=== PATIENT | male | born 1990 | race American Indian/Alaskan Native ===

== ENCOUNTER 2018-02-22 16:29 | Emergency (ER) | payer BC ==
--- NOTE | 2018-02-22 17:01 | EDM.PDOC ---
ED HPI GENERAL MEDICAL PROBLEM - General Chief Complaint: ENT Problem Stated Complaint: SORE THROAT AND CONGESTION Time Seen by Provider: 02/22/18 16:52 Source of Information: Reports: Patient History Limitations: Reports: No Limitations - History of Present Illness INITIAL COMMENTS - FREE TEXT/NARRATIVE: HISTORY AND PHYSICAL: History of present illness: Patient is a 27-year-old male who presents to the emergency room with complaints of sore throat, hoarse voice and subjective fevers. He spit states over the past 24 hours he has felt like he has had a fever and had some intermittent chills. Developed a sore throat and felt like his voice was hoarse. December 2017: Patient did have an ultrasound of the neck which showed a well circumscribed hypoechoic mass 7 x 5 mm. He states that this was biopsied and is non-Hodgkin's lymphoma. Currently is receiving radiation therapy for this , last treatment was one week ago. He states he does follow closely with Dr. Medellin and his oncologist. Concerned he may have strep throat. Review of systems: As per history of present illness and below otherwise all systems reviewed and negative. Past medical history: As per history of present illness and as reviewed below otherwise noncontributory. Surgical history: As per history of present illness and as reviewed below otherwise noncontributory. Social history: See social history for further information Family history: As per history of present illness and as reviewed below otherwise noncontributory. Physical exam: General: Well-developed and well-nourished 27-year-old male. Alert and oriented. Nontoxic appearing and in no acute distress. HEENT: Atraumatic, normocephalic, pupils equal and reactive bilaterally, negative for conjunctival pallor or scleral icterus, mucous membranes moist, posterior oropharynx is mildly erythematous without exudate, no pillar shifting or fullness, neck supple, nontender, small incision site noted below right mandible, trachea midline. No drooling or trismus noted. No meningeal signs. No hot potato voice. Lungs: Clear to auscultation, breath sounds equal bilaterally, chest nontender. Dry nonproductive cough noted. Heart: S1S2, regular rate and rhythm without overt murmur Abdomen: Soft, nondistended, nontender. Negative for masses or hepatosplenomegaly. Negative for costovertebral tenderness. Pelvis: Stable nontender. Genitourinary: Deferred. Rectal: Deferred. Skin: Healing biopsy site noted to the right upper neck below the mandible (no sign of complications). Otherwise skin is intact, warm, dry. No lesions or rashes noted. Extremities: Atraumatic, negative for cords or calf pain. Neurovascular unremarkable. Neuro: Awake, alert, oriented. Cranial nerves II through XII unremarkable. Cerebellum unremarkable. Motor and sensory unremarkable throughout. Exam nonfocal. Notes: Discussed doing a strep and chest x-ray. Both of these are within normal limits. At this time we did discuss if we should do lab work, he declines. He states he does follow closely with his primary care provider. We'll treat with Z -Jono and Medrol Dosepak. He states he will follow-up on Saturday. Reviewed signs and symptoms that would prompt him to return to the emergency room. He voices understanding and is agreeable to plan of care. Denies any further questions or concerns at this time. Diagnostics: Strep, chest x-ray Therapeutics: None Prescription: Zpack Medrol Dospak Phenergan w/ Codeine Impression: Atypical Pneumonia Pharyngitis Plan: 1. Please take the medication as prescribed. 2. Tylenol and/or Ibuprofen for pain and fever management. Take the Phenergan with Codeine for moderate to severe pain. Can cause drowsiness. 3. Follow-up with your primary caregiver and/or Dr. Medellin on Saturday. 4. Return to the ED as needed and as discussed. Definitive disposition and diagnosis as appropriate pending reevaluation and review of above. Throat Pain Score (Numeric/FACES): 5 - Related Data Allergies Allergy/AdvReac Type Severity Reaction Status Date / Time amoxicillin Allergy Hives Verified 02/22/18 16:50 Penicillins Allergy Hives Verified 02/22/18 16:50 Home Meds: Home Meds ARIPiprazole [Abilify] 5 mg PO QAM 01/21/18 [History] Sertraline HCl 100 mg PO QAM 01/21/18 [History] Past Medical History HEENT History: Reports: Retinal Detachment, Other (See Below) Other HEENT History: wears glasses/contacts, hx of retinal tear - no treatment needed- vision preserved Musculoskeletal History: Reports: Fracture Other Musculoskeletal History: hx of fx right wrist and right jaw Neurological History: Reports: Concussion Psychiatric History: Reports: Depression Oncologic (Cancer) History: Reports: Non-Hodgkin's Lymphoma - Infectious Disease History Infectious Disease History: Reports: Chicken Pox Social & Family History - Family History Family Medical History: Noncontributory - Tobacco Use Smoking Status *Q: Never Smoker - Recreational Drug Use Recreational Drug Use: No ED ROS ENT - Review of Systems Review Of Systems: ROS reveals no pertinent complaints other than HPI. ED EXAM, ENT - Physical Exam Exam: See Below (See dictation) Course - Vital Signs Last Recorded V/S: Last Vital Signs Temp 98.7 F 02/22/18 16:47 Pulse 74 02/22/18 18:55 Resp 18 02/22/18 16:47 BP 140/60 02/22/18 18:55 Pulse Ox 97 02/22/18 18:55 - Orders/Labs/Meds Orders: Active Orders 24 hr Category Date Time Status Chest 2V [CR] Stat Exams 02/22/18 17:01 Taken CULTURE STREP A CONFIRMATION [RM] Stat Lab 02/22/18 17:00 Results STREP SCRN A RAPID W CULT CONF [RM] Stat Lab 02/22/18 17:00 Results Departure - Departure Time of Disposition: 18:43 Disposition: Home, Self-Care 01 Clinical Impression: Atypical pneumonia - Discharge Information Instructions: Community-Acquired Pneumonia, Adult, [id number] Referrals: PCP,None [Primary Care Provider] - Forms: ED Department Discharge Additional Instructions: The following information is given to patients seen in the emergency department who are being discharged to home. This information is to outline your options for follow-up care. We provide all patients seen in our emergency department with a follow-up referral. The need for follow-up, as well as the timing and circumstances, are variable depending upon the specifics of your emergency department visit. If you don't have a primary care physician on staff, we will provide you with a referral. We always advise you to contact your personal physician following an emergency department visit to inform them of the circumstance of the visit and for follow-up with them and/or the need for any referrals to a consulting specialist. The emergency department will also refer you to a specialist when appropriate. This referral assures that you have the opportunity for follow-up care with a specialist. All of these measure are taken in an effort to provide you with optimal care, which includes your follow-up. Under all circumstances we always encourage you to contact your private physician who remains a resource for coordinating your care. When calling for follow-up care, please make the office aware that this follow-up is from your recent emergency room visit. If for any reason you are refused follow-up, please contact the [facility] Emergency Department at and asked to speak to the emergency department charge nurse. [facility] [address] [place] [id number] [facility] [address] [place] [id number] [facility] - ENT [address], [place] [address] 1. Please take the medication as prescribed. 2. Tylenol and/or Ibuprofen for pain and fever management. Take the Phenergan with Codeine for moderate to severe pain. Can cause drowsiness. 3. Follow-up with your primary caregiver and/or Dr. Medellin on Saturday. 4. Return to the ED as needed and as discussed. - My Orders Last 24 Hours: My Active Orders 02/22/18 17:00 CULTURE STREP A CONFIRMATION [RM] Stat STREP SCRN A RAPID W CULT CONF [RM] Stat 02/22/18 17:01 Chest 2V [CR] Stat - Assessment/Plan Last 24 Hours: My Active Orders 02/22/18 17:00 CULTURE STREP A CONFIRMATION [RM] Stat STREP SCRN A RAPID W CULT CONF [RM] Stat 02/22/18 17:01 Chest 2V [CR] Stat
--- NOTE | 2018-02-24 17:54 | CR ---
EXAM DATE: 02/22/18 PATIENT'S AGE: 27 Patient: SHIRA MORRISON Facility: [place], [place] Site . Site : 1990 Study: XRay Chest [id number]/12/2019 6:40:09 PM Ordering Physician: Doctor Parada Final Report: INDICATION: Pain. TECHNIQUE: PA and lateral views of the chest. COMPARISON: None. FINDINGS: Normal cardiac, mediastinal and hilar contours. Normal pulmonary vasculature. Lungs are clear. No pleural fluid or pneumothorax. IMPRESSION: No signs of acute cardiopulmonary disease. Dictated by Javier Bhatia MD @ 02/22/2018 6:56:53 PM Dictated by: Javier Bhatia MD @ 02/22/2018 18:57:00 (Electronic Signature) Report Signed by Proxy. [place]
== END 2018-02-22 18:55 | disposition home or self-care (01) ==
LOC: MW.ED 16:29
DX: J18.9 Pneumonia, unspecified organism (principal); J20.9 Acute bronchitis, unspecified; Z88.0 Allergy status to penicillin; Z88.1 Allergy status to other antibiotic agents
CPT/HCPCS: 71046; 71046-26; 87081; 87880-QW; 99283

== ENCOUNTER 2018-06-03 14:55 | Emergency (ER) | payer BC ==
[2018-06-03] MEDS ORDERED: Sodium Chloride 0.9% 1,000 ML IV ONE (14:58)
--- NOTE | 2018-06-03 15:06 | EDM.PDOC ---
ED HPI GENERAL MEDICAL PROBLEM - General Chief Complaint: General Stated Complaint: FEELS FUNNY Time Seen by Provider: 06/03/18 14:57 Source of Information: Reports: Patient History Limitations: Reports: No Limitations - History of Present Illness INITIAL COMMENTS - FREE TEXT/NARRATIVE: HISTORY AND PHYSICAL: History of present illness: Patient is a 27-year-old male who presents to the emergency room with complaints of right-sided visual changes, feeling unsteady and dizziness since this afternoon. He states his symptoms started while he was working out. He noticed symptoms when he leaned back to the incline patch and started having dizziness and felt like he was off balance. He proceeded to go home and felt "shaky" and the other symptoms continued. Patient does have a history of non- Hodgkin's lymphoma, completed radiation therapy approximately 2 months ago. He sees an oncologist in [place]. Patient reports that he was talking with a coworker who states he had a "brain aneurysm" that was found after a similar instance of symptoms while he was working out. He states "I'm not sure if I'm overreacting and just getting in my head". He denies any alcohol, drug, stimulant or steroid use. Patient reports that this morning he felt well and had eaten is regular breakfast and lunch. Patient denies any fever, chills, headache, change in vision, syncope or near syncope. Denies any chest pain, back pain, shortness of breath or cough. Denies any abdominal pain, nausea, vomiting, diarrhea, constipation or dysuria. Has not noted any blood in urine or stool. Patient has been eating and drinking appropriately. Review of systems: As per history of present illness and below otherwise all systems reviewed and negative. Past medical history: As per history of present illness and as reviewed below otherwise noncontributory. Surgical history: As per history of present illness and as reviewed below otherwise noncontributory. Social history: See social history for further information Family history: As per history of present illness and as reviewed below otherwise noncontributory. Physical exam: General: Well-developed and well-nourished 27-year-old male. Alert and oriented. Nontoxic appearing and in no acute distress. HEENT: Atraumatic, normocephalic, pupils equal and reactive bilaterally, negative for conjunctival pallor or scleral icterus, mucous membranes moist, TMs normal bilaterally, throat clear, neck supple, nontender, trachea midline. No drooling or trismus noted. No nystagmus noted. No meningeal signs. No hot potato voice noted. Lungs: Clear to auscultation, breath sounds equal bilaterally, chest nontender. Heart: S1S2, regular rate and rhythm without overt murmur Abdomen: Soft, nondistended, nontender. Negative for masses or hepatosplenomegaly. Negative for costovertebral tenderness. Pelvis: Stable nontender. Genitourinary: Deferred. Rectal: Deferred. Skin: Intact, warm, dry. No lesions or rashes noted. Extremities: Atraumatic, moves all extremities per self without difficulty or deficits, negative for cords or calf pain. Neurovascular unremarkable. Neuro: Awake, alert, oriented. Cranial nerves II through XII unremarkable. Cerebellum unremarkable. Motor and sensory unremarkable throughout. Exam nonfocal. Notes: Lab work is unremarkable. BUN/Creat were slightly elevated; no comparision available. That was shared with the patient and encouraged him to have labs redrawn after he feels better. Head CT and chest x-ray are within normal limits. Patient's EKG shows a normal sinus rhythm with rate of 76 abdominal acute findings. All findings were shared with the patient. He states he does feel improved after receiving the IV fluids. Supportive care measures were reviewed and discussed. Voices understanding and is agreeable to plan of care. Denies any further questions or concerns at this time. Diagnostics: CBC, CMP, EKG, one view chest, head CT, orthostatic vital signs Therapeutics: IV fluid Prescription: None Impression: Dizziness Plan: 1. Today's lab work, x-rays and imaging are reassuring. Please take the remainder of the day to rest. Avoid any stimulants such as caffeine, alcohol or supplements. Increase your oral fluids. 2. Follow-up with your primary care provider as we discussed. 3. Return to the ED as needed and as discussed. Definitive disposition and diagnosis as appropriate pending reevaluation and review of above. right head Pain Score (Numeric/FACES): 6 - Related Data Allergies Allergy/AdvReac Type Severity Reaction Status Date / Time amoxicillin Allergy Hives Verified 06/03/18 14:59 Penicillins Allergy Hives Verified 06/03/18 14:59 Home Meds: Home Meds . [No Known Home Meds] 06/03/18 [History] Past Medical History HEENT History: Reports: Retinal Detachment, Other (See Below) Other HEENT History: wears glasses/contacts, hx of retinal tear - no treatment needed- vision preserved Musculoskeletal History: Reports: Fracture Other Musculoskeletal History: hx of fx right wrist and right jaw Neurological History: Reports: Concussion Psychiatric History: Reports: Depression Oncologic (Cancer) History: Reports: Non-Hodgkin's Lymphoma - Infectious Disease History Infectious Disease History: Reports: Chicken Pox Social & Family History - Family History Family Medical History: Noncontributory ED ROS GENERAL - Review of Systems Review Of Systems: ROS reveals no pertinent complaints other than HPI. ED EXAM, GENERAL - Physical Exam Exam: See Below (See dictation) Course - Vital Signs Last Recorded V/S: Last Vital Signs Temp 97.7 F 06/03/18 14:57 Pulse 88 06/03/18 14:57 Resp 18 06/03/18 14:57 BP 146/72 H 06/03/18 14:57 Pulse Ox 96 06/03/18 14:57 Orthostatic Blood Pressure [ 121/56 Standing] Orthostatic Blood Pressure [ 119/57 Sitting] Orthostatic Blood Pressure [ 115/47 Supine] - Orders/Labs/Meds Orders: Active Orders 24 hr Category Date Time Status EKG Documentation Completion [RC] STAT Care 06/03/18 14:58 Active Glucose [Blood Glucose Check, Bedside] [RC] ONETIME Care 06/03/18 15:06 Active Orthostatic Vital Signs [RC] ASDIRECTED Care 06/03/18 14:58 Active Labs: Laboratory Tests 06/03/18 06/03/18 Range/Units 15:05 15:05 WBC 7.38 (4.0-11.0) K/uL RBC 4.98 (4.50-5.90) M/uL Hgb 15.8 (13.0-17.0) g/dL Hct 45.5 (38.0-50.0) % MCV 91.4 (80.0-98.0) fL MCH 31.7 (27.0-32.0) pg MCHC 34.7 (31.0-37.0) g/dL RDW Std Deviation 43.4 (28.0-62.0) fl RDW Coeff of Laly 13 (11.0-15.0) % Plt Count 277 (150-400) K/uL MPV 10.10 (7.40-12.00) fL Neut % (Auto) 56.2 (48.0-80.0) % Lymph % (Auto) 34.8 (16.0-40.0) % Stone % (Auto) 6.6 (0.0-15.0) % Eos % (Auto) 1.9 (0.0-7.0) % Baso % (Auto) 0.5 (0.0-1.5) % Neut # (Auto) 4.1 (1.4-5.7) K/uL Lymph # (Auto) 2.6 H (0.6-2.4) K/uL Stone # (Auto) 0.5 (0.0-0.8) K/uL Eos # (Auto) 0.1 (0.0-0.7) K/uL Baso # (Auto) 0.0 (0.0-0.1) K/uL Nucleated RBC % 0.0 /100WBC Nucleated RBCs # 0 K/uL Sodium 138 (136-148) mmol/L Potassium 4.1 (3.5-5.1) mmol/L Chloride 102 (98-107) mmol/L Carbon Dioxide 25.5 (21.0-32.0) mmol/L BUN 24 H (7.0-18.0) mg/dL Creatinine 1.5 H (0.8-1.3) mg/dL Est Cr Clr Drug Dosing 77.73 mL/min Estimated GFR (MDRD) 57.0 ml/min Glucose 106 (74-106) mg/dL Calcium 9.7 (8.5-10.1) mg/dL Total Bilirubin 0.6 (0.2-1.0) mg/dL AST 16 (15-37) IU/L ALT 37 (14-63) IU/L Alkaline Phosphatase 56 (46-116) U/L Total Protein 7.9 (6.4-8.2) g/dL Albumin 4.6 (3.4-5.0) g/dL Globulin 3.3 (2.6-4.0) g/dL Albumin/Globulin Ratio 1.4 (0.9-1.6) Meds: Medications Discontinued Medications Generic Name Dose Route Start Last Admin Trade Name Freq PRN Reason Stop Dose Admin Sodium Chloride 1,000 mls @ 999 mls/hr 06/03/18 14:58 06/03/18 15:09 Normal Saline IV 06/03/18 15:58 999 mls/hr STAT ONE Administration Departure - Departure Time of Disposition: 16:36 Disposition: Home, Self-Care 01 Clinical Impression: Dizziness - Discharge Information Instructions: Dizziness, [id number] Referrals: PCP,None [Primary Care Provider] - Forms: ED Department Discharge Additional Instructions: The following information is given to patients seen in the emergency department who are being discharged to home. This information is to outline your options for follow-up care. We provide all patients seen in our emergency department with a follow-up referral. The need for follow-up, as well as the timing and circumstances, are variable depending upon the specifics of your emergency department visit. If you don't have a primary care physician on staff, we will provide you with a referral. We always advise you to contact your personal physician following an emergency department visit to inform them of the circumstance of the visit and for follow-up with them and/or the need for any referrals to a consulting specialist. The emergency department will also refer you to a specialist when appropriate. This referral assures that you have the opportunity for follow-up care with a specialist. All of these measure are taken in an effort to provide you with optimal care, which includes your follow-up. Under all circumstances we always encourage you to contact your private physician who remains a resource for coordinating your care. When calling for follow-up care, please make the office aware that this follow-up is from your recent emergency room visit. If for any reason you are refused follow-up, please contact the [facility] Emergency Department at and asked to speak to the emergency department charge nurse. [facility] [address] [place] [address] [facility] [address] [place] [id number] 1. Today's lab work, x-rays and imaging are reassuring. Please take the remainder of the day to rest. Avoid any stimulants such as caffeine, alcohol or supplements. Increase your oral fluids. 2. Follow-up with your primary care provider as we discussed. 3. Return to the ED as needed and as discussed. - My Orders Last 24 Hours: My Active Orders 06/03/18 14:58 EKG Documentation Completion [RC] STAT Orthostatic Vital Signs [RC] ASDIRECTED 06/03/18 15:06 Glucose [Blood Glucose Check, Bedside] [RC] ONETIME - Assessment/Plan Last 24 Hours: My Active Orders 06/03/18 14:58 EKG Documentation Completion [RC] STAT Orthostatic Vital Signs [RC] ASDIRECTED 06/03/18 15:06 Glucose [Blood Glucose Check, Bedside] [RC] ONETIME
--- NOTE | 2018-06-03 15:56 | CR ---
EXAMINATION: Portable chest radiograph. HISTORY: Shortness of breath. Comparison: 02/22/2018 FINDINGS: The trachea is midline. The cardiomediastinal silhouette is within normal limits. No pulmonary infiltrates, effusions or pneumothorax. Osseous structures appear unremarkable. IMPRESSION: No acute cardiopulmonary process.
--- NOTE | 2018-06-03 16:08 | CT ---
EXAMINATION: Non contrast CT head. Coronal and sagittal reformats. HISTORY: Dizziness FINDINGS: No evidence of intra or extra axial hemorrhage, mass, midline shift, hydrocephalus or edema. No hypoattenuation changes in the major vascular territories to suggest acute infarct. No abnormal intracranial calcifications are detected. No evidence of substantial vascular calcifications. Cavum septum pellucidum Paranasal sinuses and mastoid air cells are well aerated without substantial findings. Pituitary fossa appears unremarkable. Orbits and globes are symmetric. Calvarium is intact. No evidence of skull fracture. IMPRESSION: No acute intracranial findings.
== END 2018-06-03 16:51 | disposition home or self-care (01) ==
LOC: MW.ED 14:55
DX: R42 Dizziness and giddiness (principal); Z88.1 Allergy status to other antibiotic agents
CPT/HCPCS: 36415; 70450; 71045; 80053; 85025; 93005; 96360; 99284; J7040

== ENCOUNTER 2020-01-09 22:34 | Emergency (ER) | payer BC, OTHER ==
[2020-01-09] MEDS ORDERED: Sodium Chloride 0.9% 2.5 ML Syringe FLUSH PRN (22:37)
[2020-01-09] MEDS ORDERED: Sodium Chloride 0.9% 10 ML Syringe FLUSH PRN (22:37)
--- NOTE | 2020-01-09 22:43 | EDM.PDOC ---
ED HPI GENERAL MEDICAL PROBLEM - General Stated Complaint: EMS ARRIVAL Time Seen by Provider: 01/09/20 22:38 - History of Present Illness INITIAL COMMENTS - FREE TEXT/NARRATIVE: History of present illness: [] Patient was out with friends. He enjoys unusually good health. He was drinking with his buddies had an after he went to the bathroom he felt a little chest pain briefly then he passed out. The buddies did CPR and paramedics say they do not think they checked for a pulse. They were not particularly medically trained people. The patient passed out once in the ambulance on the way here and he was breathing and had a pulse. Phillip at the [facility] said that for a few seconds before they started CPR he was not breathing. the patient smokes but he is not diabetic not treated for hypertension. Review of systems: As per history of present illness and below otherwise all systems reviewed and negative. Past medical history: As per history of present illness and as reviewed below otherwise noncontributory. Surgical history: As per history of present illness and as reviewed below otherwise noncontributory. Social history: No reported history of drug or alcohol abuse. Family history: As per history of present illness and as reviewed below otherwise noncontributory. Physical exam: Constitutional - well developed, well-nourished muscular white male and in no acute distress HEENT - normocephalic, no evidence of trauma - external nose and mouth normal - no mass in neck and no JVD - mucosae moist EYES - full EOM, PERRL, no icterus - no evidence of inflammation, injection, or drainage Respiratory -erythema minimal tenderness in the anterior central chest area. No respiratory distress, equal bilateral expansion, lungs clear to auscultation and no abnormal lung sounds Cardiovascular - Regular Rhythm with S1 and S2 appreciated and no murmur, gallop or rub. GI - abdomen soft without distension or organomegaly - normal bowel sounds - no guard or rebound Musculoskeletal tenderness without crepitation in the anterior chest. No gross deformity of long bones or joints - no tenderness, swelling or edema Neurologic - Alert and oriented times four - CN II-XII grossly intact - motor sensory and coordination symmetrically normal Psychiatric - appropriate mood and affect with normal thought content Hematologic - No petechiae or purpura - mucosa appropriate color and sclera not pale - normal nail bed color and refill Integument -mild erythema in the anterior central chest. No rash or evidence of trauma - normal turgor Diagnostics: [] Therapeutics: [] Impression: [] Plan: [] Definitive disposition and diagnosis as appropriate pending reevaluation and review of above. sternal Pain Score (Numeric/FACES): 5 - Related Data Allergies Allergy/AdvReac Type Severity Reaction Status Date / Time amoxicillin Allergy Hives Verified 01/09/20 22:50 Penicillins Allergy Hives Verified 01/03/20 09:35 Home Meds: Home Meds . [No Known Home Meds] 06/03/18 [History] Past Medical History HEENT History: Reports: Retinal Detachment, Other (See Below) Other HEENT History: wears glasses/contacts, hx of retinal tear - no treatment needed- vision preserved Cardiovascular History: Reports: None Respiratory History: Reports: None Gastrointestinal History: Reports: None Genitourinary History: Reports: None Musculoskeletal History: Reports: Fracture Other Musculoskeletal History: hx of fx right wrist and right jaw Neurological History: Reports: Concussion Psychiatric History: Reports: Depression Endocrine/Metabolic History: Reports: None Hematologic History: Reports: None Immunologic History: Reports: None Oncologic (Cancer) History: Reports: Non-Hodgkin's Lymphoma Dermatologic History: Reports: None - Infectious Disease History Infectious Disease History: Reports: Chicken Pox - Past Surgical History Head Surgeries/Procedures: Reports: None HEENT Surgical History: Reports: None Cardiovascular Surgical History: Reports: None Respiratory Surgical History: Reports: None GI Surgical History: Reports: None Male Surgical History: Reports: None Endocrine Surgical History: Reports: None Neurological Surgical History: Reports: None Musculoskeletal Surgical History: Reports: None Oncologic Surgical History: Reports: None Dermatological Surgical History: Reports: None Social & Family History - Family History Family Medical History: No Pertinent Family History - Caffeine Use Caffeine Use: Reports: Coffee ED ROS GENERAL - Review of Systems Review Of Systems: Comprehensive ROS is negative, except as noted in HPI. ED EXAM, GENERAL - Physical Exam Exam: See Below Free Text/Narrative:: My physical exam is in the HPI #1 Interpretation EKG Interpretation Comments: . EKG done at 10:39 PM sinus rhythm with a heart rate of 80. WI interval 133. QT duration 416. Quimby 62. Normal QRS. Normal ST and T. Compared to 06/03/2018 no change impression normal Course - Vital Signs Text/Narrative:: Understood that I thought it would be murphy to be admitted to for monitoring and troponin in the morning. He agreed that if he has any chest pain he will come back. He also agreed to follow-up with Dr. Patel and have a stress test. The patient's only family member that ever had a heart attack was his grandfather gus connolly is recent and he was in his later years. The the patient not being but a very occasional smoker and drinker having a brief chest pain and probable basal vagal episode appears low risk to me and I have decided to allow him to go home. Last Recorded V/S: Last Vital Signs Temp 36.1 C 01/09/20 22:44 Pulse 69 01/09/20 22:44 Resp 20 01/09/20 22:44 BP 135/79 01/09/20 22:44 Pulse Ox 98 01/09/20 22:44 - Orders/Labs/Meds Orders: Active Orders 24 hr Category Date Time Status Cardiac Monitoring [RC] . DIRECTED Care 01/09/20 22:37 Active EKG Documentation Completion [RC] AM Care 01/09/20 22:37 Active Chest 1V Frontal [CR] Stat Exams 01/09/20 23:10 Taken Sodium Chloride 0.9% [Saline Flush] Med 01/09/20 22:37 Active 10 ml FLUSH ASDIRECTED PRN Sodium Chloride 0.9% [Saline Flush] Med 01/09/20 22:37 Active 2.5 ml FLUSH ASDIRECTED PRN Saline Lock Insert [OM.PC] Stat Oth 01/09/20 22:37 Ordered Medication Orders Sodium Chloride (Saline Flush) 10 ml FLUSH ASDIRECTED PRN PRN Reason: Keep Vein Open Last Admin: 01/09/20 22:50 Dose: 10 ml Documented by: CLAUDIA Sodium Chloride (Saline Flush) 2.5 ml FLUSH ASDIRECTED PRN PRN Reason: Keep Vein Open Last Admin: 01/09/20 22:50 Dose: 2.5 ml Documented by: CLAUDIA Labs: Laboratory Tests 01/09/20 01/09/20 Range/Units 22:35 22:35 WBC 10.28 (4.0-11.0) K/uL RBC 5.05 (4.50-5.90) M/uL Hgb 16.1 (13.0-17.0) g/dL Hct 45.2 (38.0-50.0) % MCV 89.5 (80.0-98.0) fL MCH 31.9 (27.0-32.0) pg MCHC 35.6 (31.0-37.0) g/dL RDW Std Deviation 40.6 (28.0-62.0) fl RDW Coeff of Laly 12 (11.0-15.0) % Plt Count 260 (150-400) K/uL MPV 9.70 (7.40-12.00) fL Neut % (Auto) 53.5 (48.0-80.0) % Lymph % (Auto) 38.7 (16.0-40.0) % Humphreys % (Auto) 6.1 (0.0-15.0) % Eos % (Auto) 1.3 (0.0-7.0) % Baso % (Auto) 0.4 (0.0-1.5) % Neut # (Auto) 5.5 (1.4-5.7) K/uL Lymph # (Auto) 4.0 H (0.6-2.4) K/uL Humphreys # (Auto) 0.6 (0.0-0.8) K/uL Eos # (Auto) 0.1 (0.0-0.7) K/uL Baso # (Auto) 0.0 (0.0-0.1) K/uL Nucleated RBC % 0.0 /100WBC Nucleated RBCs # 0 K/uL Sodium 142 (136-148) mmol/L Potassium 3.4 L (3.5-5.1) mmol/L Chloride 105 (98-107) mmol/L Carbon Dioxide 23.8 (21.0-32.0) mmol/L BUN 18 (7.0-18.0) mg/dL Creatinine 1.5 H (0.8-1.3) mg/dL Est Cr Clr Drug Dosing 76.38 mL/min Estimated GFR (MDRD) 56.1 ml/min Glucose 87 (74-106) mg/dL Calcium 9.0 (8.5-10.1) mg/dL Magnesium 2.6 H (1.8-2.4) mg/dL Total Bilirubin 0.4 (0.2-1.0) mg/dL AST 30 (15-37) IU/L ALT 35 (14-63) IU/L Alkaline Phosphatase 71 (46-116) U/L Troponin I < 0.050 (0.000-0.056) ng/mL Total Protein 8.0 (6.4-8.2) g/dL Albumin 4.8 (3.4-5.0) g/dL Globulin 3.2 (2.6-4.0) g/dL Albumin/Globulin Ratio 1.5 (0.9-1.6) Ethyl Alcohol 155 mg/dL Meds: Medications Generic Name Dose Route Start Last Admin Trade Name Freq PRN Reason Stop Dose Admin Sodium Chloride 10 ml 01/09/20 22:37 01/09/20 22:50 Saline Flush FLUSH 10 ml ASDIRECTED PRN Administration Keep Vein Open Sodium Chloride 2.5 ml 01/09/20 22:37 01/09/20 22:50 Saline Flush FLUSH 2.5 ml ASDIRECTED PRN Administration Keep Vein Open Departure - Departure Time of Disposition: 23:23 Disposition: Home, Self-Care 01 Condition: Good Clinical Impression: Atypical chest pain, Vasovagal syncope - Discharge Information Instructions: Nonspecific Chest Pain, Adult, Syncope, [id number] Referrals: PCP,None [Primary Care Provider] - Anival Pierre MD [Physician] - Additional Instructions: [facility] - cardiology [address] [place] [id number] [facility] - Primary Care [address] [place] [id number] [address] [id number] The following information is given to patients seen in the emergency department who are being discharged to home. This information is to outline your options for follow-up care. We provide all patients seen in our emergency department with a follow-up referral. The need for follow-up, as well as the timing and circumstances, are variable depending upon the specifics of your emergency department visit. If you don't have a primary care physician on staff, we will provide you with a referral. We always advise you to contact your personal physician following an emergency department visit to inform them of the circumstance of the visit and for follow-up with them and/or the need for any referrals to a consulting specialist. The emergency department will also refer you to a specialist when appropriate. This referral assures that you have the opportunity for follow-up care with a specialist. All of these measure are taken in an effort to provide you with optimal care, which includes your follow-up. Under all circumstances we always encourage you to contact your private physician who remains a resource for coordinating your care. When calling for follow-up care, please make the office aware that this follow-up is from your recent emergency room visit. If for any reason you are refused follow-up, please contact the [facility] Emergency Department at and asked to speak to the emergency department charge nurse. Sepsis Event Note (ED) - Focused Exam Vital Signs: Vital Signs Temp Pulse Resp BP Pulse Ox 01/09/20 22:44 36.1 C 69 20 135/79 98 - My Orders Last 24 Hours: My Active Orders 01/09/20 22:37 Cardiac Monitoring [RC] . DIRECTED EKG Documentation Completion [RC] AM Sodium Chloride 0.9% [Saline Flush] 10 ml FLUSH ASDIRECTED PRN Sodium Chloride 0.9% [Saline Flush] 2.5 ml FLUSH ASDIRECTED PRN Saline Lock Insert [OM.PC] Stat 01/09/20 23:10 Chest 1V Frontal [CR] Stat - Assessment/Plan Last 24 Hours: My Active Orders 01/09/20 22:37 Cardiac Monitoring [RC] . DIRECTED EKG Documentation Completion [RC] AM Sodium Chloride 0.9% [Saline Flush] 10 ml FLUSH ASDIRECTED PRN Sodium Chloride 0.9% [Saline Flush] 2.5 ml FLUSH ASDIRECTED PRN Saline Lock Insert [OM.PC] Stat 01/09/20 23:10 Chest 1V Frontal [CR] Stat
[2020-01-09 23:07] LABS: BLOOD UREA NITROGEN,BUN 18 mg/dL (7.0-18.0); CARBON DIOXIDE,CO2 23.8 mmol/L (21.0-32.0); CHLORIDE,CL 105 mmol/L (98-107); GLUCOSE RANDOM 87 mg/dL (74-106); POTASSIUM,K 3.4 mmol/L (3.5-5.1); SODIUM,NA 142 mmol/L (136-148)
--- NOTE | 2020-01-09 23:56 | CR ---
Indication: Chest pain after CPR Technique: Chest 1 view Comparison: Chest x-ray 06/03/2018 Findings/Impression: Cardiovascular and mediastinum: Heart size and vasculature are normal in caliber and appearance. Lungs and pleural space: Lungs are clear. No sign of infiltrate or mass. No sign of pleural effusion. No pneumothorax. Bones and soft tissues: No acute findings. Dictated by Jann Gomez MD @ Jan 09 2020 11:54PM Signed by Dr. Jann Gomez @ Jan 09 2020 11:55PM
== END 2020-01-09 23:33 | disposition home or self-care (01) ==
LOC: MW.ED 22:34
DX: R07.89 Other chest pain (principal); R55 Syncope and collapse; F17.200 Nicotine dependence, unspecified, uncomplicated; Z88.1 Allergy status to other antibiotic agents; Z88.0 Allergy status to penicillin
CPT/HCPCS: 36415; 71045; 71045-26; 80053; 80307; 83735; 84484; 85025; 93005; 93010; 99284; 99285-25

== ENCOUNTER 2023-11-19 15:37 | Emergency (ER) | payer BC, OTHER ==
[2023-11-19] MEDS: Lidocaine 1% with EPINEPHrine 1:100,000 10 ML MDV INJECT ONE (15:57)
[2023-11-19] MEDS: Bacitracin Oint 1 GM U/D Packet TOP ONE (16:53)
== END 2023-11-19 16:57 | disposition home or self-care (01) ==
LOC: MW.ED 15:37
DX: S61.512A Laceration without foreign body of left wrist, initial encounter (principal); Z88.0 Allergy status to penicillin; W26.0XXA Contact with knife, initial encounter
CPT/HCPCS: 12002; 99282; 99283; J3490